=== PATIENT | female | born 2000 | race Caucasian/White ===

== ENCOUNTER 2022-06-10 01:03 | Outpatient (CLI) | payer OTHER, SELFPAY | END 2022-06-10 01:04 | disposition home or self-care (01) | LOC: AMB 06-12 12:51 | PROVIDERS: Visit Provider Family Medicine | DX: F10.129 Alcohol abuse with intoxication, unspecified (principal) | CPT/HCPCS: A0425; A0427 ==

== ENCOUNTER 2022-06-10 01:23 | Emergency (ER) | payer OTHER, SELFPAY ==
[2022-06-10 01:30] VITALS: BP 100/66; PULSE 78; RESP 16; TEMP 36.8; O2SAT 99; BMI 19.4
[2022-06-10] MEDS: ONDANSETRON ODT 4 MG TAB PO (01:38)
[2022-06-10 02:00] VITALS: BP 112/74; PULSE 78; RESP 16; TEMP 36.8; O2SAT 99
[2022-06-10 02:10] VITALS: BP 100/66; PULSE 78; RESP 16; TEMP 36.8
--- NOTE | 2022-06-10 13:46 | ED.ALCOHOL ---
HPI - Alcohol General Chief Complaint: Alcohol/Intoxication Stated Complaint: ETOH Time Seen by Provider: 06/10/22 01:29 History of Present Illness HPI narrative: 21-year-old young woman presenting to the emergency department via EMS accompanied by her roommate with apparent alcohol intoxication. She was difficult to arouse and so roommate called for help. EMS noted that she alerted in route. Ifeoma is tearful here today worried about cost and parental approval. No drugs other than alcohol or noted. Apparently had 4 shots and a mixed drink. Sounds like this is atypical. No trauma. Roommate who attends her in the room had been present I believe. Has been vomiting. Some abdominal discomfort. College student in town. Related Data Home Medications Medication Instructions Recorded Confirmed No Known Home Medications 06/10/22 06/10/22 Allergies Allergy/AdvReac Type Severity Reaction Status Date / Time No Known Drug Allergies Allergy Verified 06/10/22 01:35 Review of Systems Status of ROS Reports: 6 or more systems reviewed and unremarkable except as noted in History and below PFSH PFS Social History Smoking Status: Never smoker Do you use any of these nicotine containing products: None How often do you have a drink containing alcohol: monthly or less How often do you have six or more drinks on one occasion: Never AUDIT-C Alcohol total score: 1 Non-prescribed substance use: denies use Exam Narrative: Exam Narrative: Is pleasant. I arrive to see her roommate holding emesis bag for her as she is dry-heaving. Tearful. Head looks atraumatic. Breathing easily. Supporting own airway. Speaking clearly. Cranial nerves 2-12 look intact. She is moving all extremities without difficulty. Heart is in a regular rate and rhythm. Abdomen is soft and a little sore to palpation along the anterior rib margin into the epigastrium. No evidence of trauma on extremities. Const: Vital Signs, click to edit/add: Vital Signs - 24 hr 06/10/22 01:30 06/10/22 02:10 06/10/22 02:00 Temperature 98.2 F 98.2 F 98.2 F Pulse Rate [Right Pulse Oximeter] 78 78 78 Respiratory Rate 16 16 16 Blood Pressure [Ri ght Upper Arm] 100/66 100/66 112/74 Pulse Oximetry 99 99 Oxygen Delivery Me thod Room Air Room Air Documenting provider has reviewed patient's vital signs: yes Course Vital Signs Vital signs: Initial Vital Signs Temperature 98.2 F 06/10/22 01:30 Temperature Source Temporal Artery Scan 06/10/22 01:30 Pulse Rate 78 06/10/22 01:30 Respiratory Rate 16 06/10/22 01:30 Blood Pressure 100/66 06/10/22 01:30 Blood Pressure Mean 77 06/10/22 01:30 Blood Pressure Position Supine 06/10/22 01:30 Pulse Oximetry 99 06/10/22 01:30 Oxygen Delivery Method 06/10/22 01:30 Vital Signs Temperature 98.2 F 06/10/22 01:30 Pulse Rate 78 06/10/22 01:30 Respiratory Rate 16 06/10/22 01:30 Blood Pressure 100/66 06/10/22 01:30 Pulse Oximetry 99 06/10/22 01:30 Oxygen Delivery Method 06/10/22 01:30 Temperature 98.2 F 06/10/22 02:10 Pulse Rate 78 06/10/22 02:10 Respiratory Rate 16 06/10/22 02:10 Blood Pressure 100/66 06/10/22 02:10 Pulse Oximetry 99 06/10/22 02:00 Oxygen Delivery Method 06/10/22 02:00 MDM - Alcohol MDM Narrative Medical decision making narrative: Is certainly alert now. After some discussion was given an ODT Zofran. I do not think further intervention is medically critical. We did offer IV fluids and further monitoring. I was part of a conversation with Mom on the phone as well with concern of dangerous level of intoxication. Given report and what I see here I do not anticipate that being an issue at this time. I left them to discuss with Ifeoma's Mom what intervention they would like. Returned to find that they had walked from the department. I had anticipated at a minimum demonstrating ability to handle oral intake. See patient discharge plan Discharge Plan Discharge Clinical Impression: Alcohol intoxication, Vomiting Patient Disposition: Home w/ Parent or Adult Condition: Improved Additional Instructions: If you are going to drink, you have got to be more careful. Take it easy with diet today. Diluted juices, soup broths, rice, toast, crackers. Prescriptions: No Action No Known Home Medications Stand Alone Forms: [facility] Info Instructions
== END 2022-06-10 02:10 | disposition home or self-care (01) ==
LOC: ED 02:06
PROVIDERS: Emergency Provider Family Medicine
DX: F10.129 Alcohol abuse with intoxication, unspecified (principal); R11.10 Vomiting, unspecified
CPT/HCPCS: 99283; A9270

== ENCOUNTER 2024-06-02 10:00 | Outpatient (CLI) | payer BC, SELFPAY ==
[2024-06-02 11:57] LABS: Ferritin* 31.7 ng/mL (6.24-137.0)
== END 2024-06-02 10:01 | disposition home or self-care (01) ==
LOC: LAB 10:05
PROVIDERS: Visit Provider Family Medicine
DX: R53.83 Other fatigue (principal)
CPT/HCPCS: 36415; 82728; 85018